=== PATIENT | male | born 1980 | race Caucasian/White ===

== ENCOUNTER 2018-08-02 19:48 | Emergency (ER) | payer SELFPAY ==
[2018-08-02 20:19] VITALS: BP 127/90
--- NOTE | 2018-08-02 21:38 | XRay Report ---
FINAL REPORT PROCEDURE: XR FINGER(S) 2+V LT TECHNIQUE: Left 1st finger, three views HISTORY: pain/swelling COMPARISON: No prior studies are available for comparison. FINDINGS: No acute fracture or dislocation is seen. No focal osseous lesions. No radiopaque foreign body. IMPRESSION: No acute osseous abnormality is seen
[2018-08-02] MEDS ORDERED: NORCO 5/325 PO ONE (22:40)
--- NOTE | 2018-08-02 22:47 | Emergency Department Report ---
ED Upper Extremity Inj HPI - General Chief Complaint: Extremity Injury, Upper Stated Complaint: LEFT HAND INJURY Source: patient Mode of arrival: Ambulatory Limitations: No Limitations - History of Present Illness Initial Comments: This is a 38-year-old male that presents with pain and swelling to left palm from an injury a few hours ago. He is visiting here from [place]. Patient states he was at the hotel when he attempt to get his glasses out of a chair when his said on his left hand. He felt his left thumb hyperextend and heard a pop. Patient states it was dislocated which she popped back in place. He took some ibuprofen which did not help pain and came in for evaluation. He reports pain is 7 out of 10 on pain scale with a constant throbbing sensation. He denies numbness or tingling, obvious deformity, paresthesias, or weakness. Complaint: Injury to:: left, finger -: This afternoon Other Extremity Injury: Fingers: Left (1st phalanx) Other Injuries: none Handedness: right Place: home Severity scale (0 -10): 7 Improves With: none Worsens With: movement of extremity Context: injury Associated Symptoms: denies other symptoms Treatments Prior to Arrival: NSAIDS - Related Data Previous Rx's Medication Instructions Recorded Last Taken Type Ibuprofen [Motrin 800 MG tab] 800 mg PO Q8HR PRN #12 tablet 08/02/18 Unknown Rx Allergies Allergy/AdvReac Type Severity Reaction Status Date / Time morphine Allergy Rash Verified 08/02/18 20:18 ED Review of Systems ROS: Stated complaint: LEFT HAND INJURY Other details as noted in HPI Constitutional: denies: chills, fever Respiratory: denies: cough, shortness of breath, wheezing Cardiovascular: denies: chest pain, palpitations Gastrointestinal: denies: abdominal pain, nausea, diarrhea Musculoskeletal: joint swelling (left 1st digit), arthralgia (left first digit) Neurological: denies: headache, weakness, paresthesias Psychiatric: denies: anxiety, depression ED Past Medical Hx - Past Medical History Previous Medical History?: Yes Additional medical history: hypothyroidism - Surgical History Past Surgical History?: No - Medications Home Medications: Home Medications Medication Instructions Recorded Confirmed Last Taken Type Ibuprofen [Motrin 800 MG tab] 800 mg PO Q8HR PRN #12 tablet 08/02/18 Unknown Rx ED Physical Exam - General Limitations: No Limitations General appearance: alert, in no apparent distress - Respiratory Respiratory exam: Present: normal lung sounds bilaterally. Absent: respiratory distress - Cardiovascular Cardiovascular Exam: Present: regular rate, normal rhythm. Absent: systolic murmur, diastolic murmur, rubs, gallop - GI/Abdominal GI/Abdominal exam: Present: soft, normal bowel sounds - Expanded Upper Extremity Exam Left Shoulder Exam: Present: normal inspection, full ROM Upper Arm exam: Present: normal inspection, full ROM Elbow exam: Present: normal inspection, full ROM Forearm Wrist exam: Present: normal inspection, full ROM Hand Wrist exam: Present: full ROM, tenderness (tenderness and swelling over the palm of first metacarpal, painful FROM), swelling. Absent: abrasion, laceration, ecchymosis, deformity, crepidus, dislocation, erythema, amputation, nail avulsion, subungual hematoma Neuro motor exam: Present: wrist extension intact, thumb opposition intact, thumb IP flexion intact, thumb adduction intact, fingers 2-5 abduction intact Neurosensory exam: Present: radial nerve intact, ulnar nerve intact, median nerve intact Vascular: Present: normal capillary refill, radial pulse (+2) - Neurological Exam Neurological exam: Present: alert, oriented X3 - Psychiatric Psychiatric exam: Present: normal affect, normal mood - Skin Skin exam: Present: warm, dry, intact, normal color. Absent: rash ED Course Vital Signs 08/02/18 20:08 Temperature 98.0 F Pulse Rate 93 H Respiratory 18 Rate Blood Pressure 127/90 O2 Sat by Pulse 96 Oximetry ED Medical Decision Making - Radiology Data Radiology results: report reviewed FINAL REPORT PROCEDURE: XR FINGER(S) 2+V LT TECHNIQUE: Left 1st finger, three views HISTORY: pain/swelling COMPARISON: No prior studies are available for comparison. FINDINGS: No acute fracture or dislocation is seen. No focal osseous lesions. No radiopaque foreign body. IMPRESSION: No acute osseous abnormality is seen - Medical Decision Making Patient was examined by me. Vitals are normal and patient is in no acute distress. Given [place] one swallowing ER. Obtained a x-rays of left hand. No acute osseous abnormality is seen. Physical findings susceptible left sprained hand. A thumb spica splint applied to left hand and given RICE therapy instructions. Patient informed of results. Start ibuprofen for pain. Plan discussed with patient to discharge home and treat outpatient. He agrees with ER plan. Patient discharged home in stable condition. Follow up with PCP in 2-3 days. Critical care attestation.: If time is entered above; I have spent that time in minutes in the direct care of this critically ill patient, excluding procedure time. ED Disposition Clinical Impression: Pain of left thumb Left thumb sprain Qualifiers: Encounter type: initial encounter Sprain of finger site: metacarpophalangeal joint Qualified Code(s): S63.642A - Sprain of metacarpophalangeal joint of left thumb, initial encounter Disposition: TO HOME OR SELFCARE Is pt being admited?: No Does the pt Need Aspirin: No Condition: Stable Instructions: Finger Sprain (ED), RICE Therapy (ED) Additional Instructions: Rest Use ice or heat on affected area for 20 minutes and off for 2 hours. Take pain medication as needed for pain. Follow-up with an orthopedic surgeon if symptoms are not improved as discussed. Follow up with Primary Care Provider in 2-3 days. Prescriptions: Ibuprofen [Motrin 800 MG tab] 800 mg PO Q8HR PRN #12 tablet PRN Reason: Pain , Severe (7-10) Referrals: [facility] [Outside] - 3-5 Days [facility] [Outside] - 3-5 Days [facility] [Outside] - 3-5 Days Time of Disposition: 22:49
== END 2018-08-02 23:14 | disposition home or self-care (01) ==
LOC: ED 19:48
DX: S63.602A Unspecified sprain of left thumb, initial encounter (principal); E03.9 Hypothyroidism, unspecified; Z88.6 Allergy status to analgesic agent; X58.XXXA Exposure to other specified factors, initial encounter; Y93.89 Activity, other specified; Y92.89 Other specified places as the place of occurrence of the external cause; Y99.8 Other external cause status